=== PATIENT | female | born 1970 | race Caucasian/White ===

== ENCOUNTER → 2017-12-05 | Outpatient (CLI) | payer OTHER | LOC: FIMAGING 15:41 | PROVIDERS: ATTEND Internal Medicine | DX: Z12.31 Encounter for screening mammogram for malignant neoplasm of breast (principal); Z80.3 Family history of malignant neoplasm of breast ==

== ENCOUNTER → 2018-08-03 | Outpatient (CLI) | payer OTHER | LOC: FIMAGING 15:56 | PROVIDERS: ATTEND Orthopaedic Surgery | DX: M17.11 Unilateral primary osteoarthritis, right knee (principal) ==

== ENCOUNTER 2018-08-25 05:53 | Observation (INO) | payer OTHER ==
--- NOTE | 2018-08-24 14:10 | GHP ---
[f rep st] PREOP HISTORY AND PHYSICAL DATE OF ADMISSION: 08/25/2018 ADMISSION DIAGNOSIS: Osteoarthritis right knee. PLANNED PROCEDURE: Right unicompartmental knee replacement with Kofi assist. 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 Has failed conservative management including physical therapy, injections. Imaging; plain films, MRI, and CT scan all show severe medial compartment arthritis. Decision has been made to proceed with a partial medial knee replacement. PAST MEDICAL HISTORY: 1. Depression. 2. Asthma. PAST SURGICAL HISTORY: None. MEDICATIONS: ProAir inhaler. ALLERGIES: No known drug allergies. SOCIAL HISTORY: She works at [employer]. Does not smoke. Reports occasional alcohol use. REVIEW OF SYSTEMS: No shortness of breath or chest pain. Otherwise, review of systems negative. PHYSICAL EXAM: VITAL SIGNS: She is 5 feet 7 inches tall, weighs 145 pounds. Blood pressure is 115/58, respiratory rate is 62, heart rate 72. GENERAL: Alert and oriented x3. HEENT: Normocephalic, atraumatic. Extraocular muscles intact. NECK: Supple. There is no lymphadenopathy. CHEST: Clear to auscultation. CARDIOVASCULAR: Regular rate and rhythm. ABDOMEN: Soft, nontender, nondistended. EXTREMITIES: Right knee: There is no effusion. Tenderness on the medial joint line. Slight varus alignment, passively correctable to straight. She has full extension. Flexes to 130 degrees. 1+ Mathew with a firm endpoint. Negative posterior drawer. Calf is soft. 2+ dorsalis pedis, posterior tibial pulses. 5/5 ankle dorsiflexion and plantar flexion strength. IMAGING: X-ray, MRI, CT scan are all reviewed. They show severe medial compartment arthritis. PLAN: Partial medial sided knee replacement with a Kofi assist. Risks and benefits including postoperative pain, stiffness, possible need for revision surgery to a total knee arthroplasty, were all explained to Leidy. She understands these risks, wished to proceed with surgery at the hospital. /[id number]/MODL MTDD
[2018-08-25] MEDS ORDERED: BUPIVACAINE/EPI 0.5% 30 ML SDV ONE (06:16)
[2018-08-25] MEDS ORDERED: THROMBIN (BOVINE) 5,000 UNIT VIAL TP ONE (06:16)
[2018-08-25] MEDS ORDERED: CALCIUM CHLORIDE 1 GM/10 ML INJ ONE (06:17)
[2018-08-25] MEDS ORDERED: ceFAZolin 1 GM/5 ML SYR ONE (06:17)
[2018-08-25] MEDS ORDERED: ceFAZolin 2 GM/DEXTROSE 100 ML IV ONE (06:34)
[2018-08-25] MEDS ORDERED: LR 1,000 ML IV ONE (06:40)
[2018-08-25] MEDS ORDERED: MIDAZOLAM 2 MG/2 ML VIAL IVP ONE (06:42)
--- NOTE | 2018-08-25 06:42 | PDANEPAE ---
ANE History of Present Illness Right knee arthritis ANE Past Medical History - Cardiovascular History Hx Hypertension: No Hx Arrhythmias: No Hx Chest Pain: No Hx Coronary Artery / Peripheral Vascular Disease: No Hx CHF / Valvular Disease: No Hx Palpitations: No - Pulmonary History Hx COPD: No Hx Asthma/Reactive Airway Disease: Yes Hx Recent Upper Respiratory Infection: No Hx Oxygen in Use at Home: No Hx Sleep Apnea: No Sleep Apnea Screening Result - Last Documented: Negative Pulmonary History Comment: INHALER - Neurologic History Hx Cerebrovascular Accident: No Hx Seizures: No Hx Dementia: No - Endocrine History Hx Diabetes: No - Renal History Hx Renal Disorders: No - Liver History Hx Hepatic Disorders: No - Neurological & Psychiatric Hx Hx Neurological and Psychiatric Disorders: Yes Neurological / Psychiatric History Comment: DEPRESSION - Cancer History Hx Cancer: No Cancer History Comment: BASAL CELL - Congenital Disorder History Hx Congenital Disorders: No - GI History Hx Gastrointestinal Disorders: No - Other Health History Other Health History: ECZEMA - Chronic Pain History Chronic Pain: Yes (R KNEE) - Surgical History Prior Surgeries: NONE ANE Review of Systems Review of Systems: - Exercise capacity METS (RN): 5 METS ANE Patient History - Allergies Allergies/Adverse Reactions: No Known Allergies Allergy (Unverified 06/02/11 07:28) - Home Medications Home medications: home medication list seen and reviewed Home Medications: Lexapro 08/17/18 [Last Taken Unknown] - Anes Hx Anes Hx: no prior problems (Dental only with N/V. No GA or RA.) - Smoking Hx Smoking Status: Former smoker - Family Anes Hx Family Hx Anesthesia Complications: Sister had headache and brain swelling after epidural ANE Labs/Vital Signs - Vital Signs Height: 171.45 cm Weight: 72.575 kg ANE Physical Exam - Airway Neck exam: FROM Mallampati Score: Class 2 Mouth exam: normal dental/mouth exam - Pulmonary Pulmonary: no respiratory distress - Cardiovascular Cardiovascular: regular rate and rhythym - ASA Status ASA Status: II ANE Anesthesia Plan Anesthesia Plan: MAC, spinal Regional Anesthesia: adductor canal FNB (Plan AC in PACU)
--- NOTE | 2018-08-25 06:52 | PDHPUP ---
History & Physical Update H&P update statement: This history and physical update is based on an assessment of the patient which was completed after admission or registration (within 24 hours), but prior to the surgery/procedure. H&P update: H&P reviewed & patient examined, no change in patient's condition since H&P completed
[2018-08-25] MEDS ORDERED: PROPOFOL/EMULSION 500 MG/50 ML BOTTLE IV ONE ×2 (07:10→08:14)
[2018-08-25] MEDS ORDERED: PROPOFOL 200 MG/20 ML VIAL ONE (07:10)
[2018-08-25] MEDS ORDERED: LIDOCAINE 2% 5 ML SDV ONE (07:11)
[2018-08-25] MEDS ORDERED: ROPIVACAINE HCL 150 MG/30 ML INJ ONE (08:17)
[2018-08-25] MEDS ORDERED: PROMETHAZINE HCL 25 MG/ML INJ IVP PRN ×2 (08:26→08:53)
[2018-08-25] MEDS ORDERED: NALOXONE HCL 0.4 MG/ML INJ IVP PRN (08:26)
[2018-08-25] MEDS ORDERED: ONDANSETRON 4 MG/2 ML VIAL IVP PRN (08:26)
[2018-08-25] MEDS ORDERED: HYDROmorphONE/DILAUDID 1 MG/ML INJ IVP PRN (08:26)
[2018-08-25] MEDS ORDERED: DIPHENOXYLATE/ATROPINE LOMOTIL 1 TAB PO PRN (08:53)
[2018-08-25] MEDS ORDERED: POLYETHYLENE GLYCOL 3350 17 GM PKT PO PRN (08:53)
[2018-08-25] MEDS ORDERED: MAGNESIUM HYDROXIDE 30 ML UDCUP PO PRN (08:53)
[2018-08-25] MEDS ORDERED: diphenhydrAMINE 25 MG CAP PO PRN (08:53)
[2018-08-25] MEDS ORDERED: LACTULOSE 20 GM/30 ML UDCUP PO PRN (08:53)
[2018-08-25] MEDS ORDERED: BISACODYL 10 MG SUPP PR PRN (08:53)
[2018-08-25] MEDS ORDERED: TEMAZEPAM 15 MG CAP PO PRN (08:53)
[2018-08-25] MEDS ORDERED: PROMETHAZINE HCL 25 MG SUPPR PR PRN (08:53)
--- NOTE | 2018-08-25 08:53 | POSTOPPROG ---
Post Op Note Date of Operation: 08/25/18 Surgeon: Valentín Lyons Hunting Guide: Dimitri Cali Anesthesiologist: Filipe Anesthesia: Spinal Pre-op Diagnosis: OA medial compartment Post-op Diagnosis: same Procedure: RT medial compartment arthroplasty Findings: severe medial OA Inf/Abcess present in the surg proc area at time of surgery?: No EBL: Minimal Bowel Protocol: Yes Clean Closure Performed: Yes
[2018-08-25] MEDS ORDERED: LR 1,000 ML IV SCH (09:00)
--- NOTE | 2018-08-25 09:07 | POSTANESTH ---
Post Anesthetic Evaluation Cardiovascular Status: Similar to Pre-Op Cond Respiratory Status: Similar to Pre-op Cond. Level of Consciousness/Mental Status: Alert and Oriented Pain Control: Adequate, Prn Tx Ordered Nausea/Vomiting Control: Adequate, Prn Tx Ordered Complications Possibly Related to Anesthesia: None Noted (Adductor canal block done in PACU without complications)
[2018-08-25] MEDS ORDERED: fentaNYL 100 MCG/2 ML INJ ONE (09:11)
[2018-08-25] MEDS: fentaNYL 100 MCG/2 ML INJ IVP PRN ×3 (09:13→10:04)
--- NOTE | 2018-08-25 09:34 | GOP ---
[f rep st] OPERATIVE REPORT DATE OF OPERATION: 08/25/2018 SURGEON: Valentín Lyons MD D[employer] HOUSE SUPERVISOR: Kamron Cali, ASSEMBLY ROOM SUPERVISOR, [facility] ANESTHESIA: Adductor canal block and spinal. ANESTHESIOLOGIST: Lee Dent MD PREOPERATIVE DIAGNOSIS: Medial compartment osteoarthritis, right knee. POSTOPERATIVE DIAGNOSIS: Medial compartment osteoarthritis, right knee. PROCEDURE PERFORMED: Right partial knee arthroplasty with Kofi assist. FINDINGS: INDICATIONS: The patient is a 47-year-old female with worsening medial compartment arthritis and stefano led conservative management. The decision was made to proceed with a partial knee arthroplasty. DESCRIPTION OF PROCEDURE: After appropriate informed consent was obtained, the patient was taken to the operating room and placed supine on the operating room table. Time-out was performed. Patient w as identified. Correct site was identified and matched with the radiographs available in the room. Following a spinal anesthetic by Dr. Dent, she was positioned on the OR table with all bony p rominences well padded. Right lower extremity was prepped and draped in the usual sterile fashion. I exsanguinated the limb and inflated the tourniquet to 250 mmHg. Total tourniquet time was 62 minut es. I made a standard midline incision with a medial parapatellar arthrotomy. She had areas of full -thickness cartilage loss throughout the medial compartment. At the inferior pole of the patella, th ere were some grade 1 changes; otherwise, the remainder of the knee looked in good shape. ACL, PCL, medial and lateral collateral ligaments were all in good shape. I removed the remaining medial menis cus. We flexed the knee up. We placed our femoral array, tibial array, and secondary check points b oth on the femur and the tibia and confirmed these positions with the Kofi system. We then did our d christiano capture on the femur and the tibia, confirmed its positioning, did our ligament balancing, then u sing a bur, we resected her femur, followed by her tibia. We then trialed the size 3 femur and the t ibia with good fit. The 9 mm poly gave us good medial lateral stability, full extension. Trial impl ants were removed. Using pulsatile irrigation, we irrigated the canal, mixed the cement on the back table, and then cemented the femur, followed by the tibia and snapped the final poly in place. Held the knee in 45 degrees of extension, removed excess cement. I irrigated the wound a final time. Charley sed the extensor mechanism with 0 Vicryl. All check points were removed. I instilled 10 mL of PRP o n the cut bone surfaces as well as 15 mL of 0.5% Marcaine with epinephrine in the knee joint. Superf icial layers closed with 2-0 Vicryl. Skin was closed with a 3-0 Quill stitch in a subcuticular fashi on. Steri-Strips were applied to the skin. Sterile dressing was applied. Patient was awakened from anesthesia, taken to the recovery room in satisfactory condition. There were no immediate intraoper ative complications. Dimitri Cali's assistance was required throughout the entire case. IMPLANTS USED: A Okfi size 3 tibia cemented, size 3 femur cemented, and a 9 mm poly. COMPLICATIONS: None. DRAINS: None. TOTAL TOURNIQUET TIME: 62 minutes. /[id number]/MODL
[2018-08-25] MEDS: SENNOSIDES/DOCUSATE SODIUM TAB PO SCH ×2 (10:34→22:14)
--- NOTE | 2018-08-25 11:19 | SOAPPROG ---
SOAP Progress Note Assessment/Plan: Assessment: s/p right knee medial compartment arthroplasy with robotic assist - procedure earlier today, performed by Dr. Lyons Plan: Begin d/c planning - patient was hoping to go home today, but according to the patient Dr. Lyons would like for her to stay over night. She will have the support of her . Continue PT/OT efforts - WBAT with assistance initially, ROM as tolerated. Needs clearance from therapy prior to d/c Continue VTE ppx - aspirin 325 mg once daily, SCDs Continue oral pain medication - oxycodone, tylenol Subjective: Patient states her right knee is quite painful, she currently rates pain 5/10. She reports that she has experienced nausea in the past with narcotics. She would like to go home today but states Dr. Lyons told her that he may have her stay one night in the hospital to make sure her pain is controlled. She currently denies shortness of breath, chest pain, fever, chills. Objective: Vital Signs Temp Pulse Resp BP Pulse Ox 36.7 C 56 L 14 104/79 100 08/25/18 10:37 08/25/18 10:37 08/25/18 10:37 08/25/18 10:37 08/25/18 10:37 08/24/18 08/25/18 08/26/18 05:59 05:59 05:59 Intake Total 695 Output Total 20 Balance 675 Patient resting in bed, no acute distress. Her is in the room. RLE: Surgical wound dressings are clean, dry and intact. SCDs in place bilaterally. Lower leg compartments are soft and nontender. She can actively DF and PF her right foot and great toe. Grossly NVI distally. ICD10 Worksheet Patient Problems: Problems Problem Status Onset Unilateral primary osteoarthritis, right knee Acute
[2018-08-25] MEDS: KETOROLAC 15 MG/1 ML SDV IVP SCH ×3 (11:26→23:08)
[2018-08-25] MEDS: oxyCODONE IR 5 MG TAB PO PRN ×3 (11:27→19:55)
[2018-08-25] MEDS: ceFAZolin 2 GM/DEXTROSE 100 ML IV SCH ×2 (13:43→22:14)
[2018-08-25] MEDS: ACETAMINOPHEN 325 MG TAB PO SCH ×2 (15:30→22:13)
[2018-08-25] MEDS: CYCLOBENZAPRINE 10 MG TAB PO PRN (19:19)
[2018-08-25] MEDS: FAMOTIDINE 20 MG TAB PO SCH (22:14)
[2018-08-25] MEDS: ASPIRIN 325 MG TAB PO SCH (22:16)
[2018-08-26] MEDS: oxyCODONE IR 5 MG TAB PO PRN ×2 (03:43→08:17)
[2018-08-26] MEDS: ACETAMINOPHEN 325 MG TAB PO SCH ×2 (03:44→08:17)
[2018-08-26] MEDS: KETOROLAC 15 MG/1 ML SDV IVP SCH (05:49)
[2018-08-26 07:54] VITALS: BP 119/68
[2018-08-26] MEDS: FAMOTIDINE 20 MG TAB PO SCH (08:16)
[2018-08-26] MEDS: CYCLOBENZAPRINE 10 MG TAB PO PRN (08:16)
[2018-08-26] MEDS: ASPIRIN 325 MG TAB PO SCH (08:16)
[2018-08-26] MEDS: SENNOSIDES/DOCUSATE SODIUM TAB PO SCH (08:17)
[2018-08-26] MEDS ORDERED: ESCITALOPRAM OXALATE 10 MG TAB PO SCH (09:00)
--- NOTE | 2018-08-26 10:03 | SOAPPROG ---
JANE Progress Note Assessment/Plan: Assessment: s/p right knee medial compartment arthroplasy with robotic assist - POD 1 - performed by Dr. Lyons Plan: Continue d/c planning - go home today, PT recommended home health/PT since she cannot start outpatient PT for 2 weeks Continue PT/OT efforts - WBAT, ROM as tolerated. Needs clearance from therapy prior to d/c Continue VTE ppx - aspirin 325 mg once daily, SCDs Continue oral pain medication - oxycodone, tylenol. Patient has script for Thornton 5/325 mg, but she is concerned this will not be enough for her pain level Subjective: Patient states she is in quite a bit of pain. She worked with PT and OT and PT recommended home health/PT since her AROM is limited and she cannot start outpatient PT for 2 weeks. PT is concerned she will not do enough ROM on her own. Patient denies SOB, CP, fever, chills, nausea, numbness, tingling. Objective: Vital Signs Temp Pulse Resp BP Pulse Ox 36.6 C 59 L 16 119/68 97 08/26/18 07:53 08/26/18 07:53 08/26/18 07:53 08/26/18 07:53 08/26/18 07:53 Laboratory Results 08/26/18 04:33 08/25/18 08/26/18 08/27/18 05:59 05:59 05:59 Intake Total 3895 Output Total 3020 400 Balance 875 -400 Patient resting in bed, no acute distress but she does appear to be in pain. RLE : Wound dressings is clean, dry and intact. Lower leg compartments are soft and nontender. Negative Homans bilaterally. She can actively DF and PF her right foot and great toe against resistance. Grossly NVI distally. ICD10 Worksheet Patient Problems: Problems Problem Status Onset Unilateral primary osteoarthritis, right knee Acute
[2018-08-26] MEDS ORDERED: OXYCODONE/APAP 5/325 TAB PO PRN (10:11)
--- NOTE | 2018-08-26 10:28 | PDDCSUM ---
Discharge Summary Discharge Summary: ADMISSION DIAGNOSIS: Right knee severe medial compartment degenerative arthritis DISCHARGE DIAGNOSIS: Right knee severe medial compartment degenerative arthritis OPERATION PERFORMED: August 25, 2018, Right knee medial compartment arthroplasty, Kofi robot assisted POSTOPERATIVE COMPLICATIONS: None CONDITION ON DISCHARGE: Improved HPI: The patient is a 47 year old female who has end-stage arthritis of the medial compartment of her right knee. Clinical and radiographic features are consistent with this. Patient has failed attempts at conservative management, therefore, recommended operative right knee medial compartment arthroplasty. DESCRIPTION OF HOSPITAL COURSE: The patient was admitted to the hospital on the morning of surgery and underwent a right knee medial compartment arthroplasty, Kofi robot assisted. Postoperatively, patient was treated with multimodal DVT prophylaxis, including aspirin 325 mg once daily, SCDs and UGO hose. Patient was seen by PT and made good progress with ambulation and stairs. On the first post-operative day the patients H&H was 11.9/34.7. Patient was able to void spontaneously. Patient progressed better than expected and was discharged on post-op day 1. At the time of discharge, patient was afebrile, wound was clean and dry. Patient is walking with a walker. DISPOSITION: The patient is discharged home with home health until she starts outpatient PT in 2 weeks. Patient may progress to full weightbearing on the right lower extremity as tolerated. UGO stockings for 10 days during the day time. Aspirin 325 mg once daily for 2 weeks. Patient has a prescription for Coffeen 5/325 mg, but she was concerned that it would not cover her pain. Therefore a script for Percocet 5/325 mg was given to her and she was instructed to take the Vicodin with her to the pharmacy in case the pharmacist wanted that medication back prior to giving her the Percocet. Flexeril was also electronically sent to her pharmacy. The patient will be seen by Dr. Lyons's office in approximately 2 weeks. If there are any problems, patient is to call Dr. Padron office.
--- NOTE | 2018-08-26 11:04 | PDIAF ---
- Diagnosis Diagnosis: Right knee DJD s/p Right partial knee replacement (medial compartment ) Code Status: Full Code - Medication Management Discharge Medications: electronically signed and located in the Home Medication List. - Orders Services needed: Home Care, Physical Therapy Home Care Face to Face: I certify that this patient was under my care and that I had the required [id number] encounter meeting the encounter requirements on the discharge day. My findings support the fact that the patient is homebound as defined in Home Care Face to Face Continued: CMS Chapter 7 Medicare Benefits Manual 30.1.1 , The condition of the patient is such that there exists a normal inability to leave home and consequently, leaving home would require a considerable and taxing effort. Diet Recommendation: no restrictions on diet Diet Texture: Regular Texture Diet Additional Instructions: Weightbear as tolerated on right lower extremity. Initiate PT and home exercises for ROM, strengthening, and gait training. Keep dressing clean and dry for 7 days and then you may removed dressing. When you shower please keep the dressing covered to prevent the incision from getting wet. Take aspirin 325 mg once daily x 2 weeks. If you have UGO hose, wear for 10 days. Continue to take Vicodin for pain, but if it is not helping you have script for Percocet. Take the Vicodin with you to the pharmacy in case the pharmacist wants that medication in exchange for the Percocet. Follow up in 14 days for repeat evaluation and wound check - Follow Up Care Current Providers and Referrals: Valentín Lyons MD [Medical Doctor] - follow up in 2 weeks NONE *PRIMARY CARE P,. [Unknown] -
--- NOTE | 2018-08-26 11:42 | ASMTLACE ---
BHUPINDERE Length of stay for Answers: 2 days current admission Acuity / Level of Answers: No Care: Did the patient have an inpatient admission? Comorbidities - select Answers: Opioid dependence all that apply / Chronic pain # of Emergency department Answers: 0 visits in the last 6 months Social determinants Answers: Mental health diagnosis (anxiety, depression, pers onality disorders, etc.) Score: 9 Date Signed: 08/26/2018 11:41 AM Electronically Signed By:LUZ Vela
--- NOTE | 2018-08-26 11:44 | ASMTCMCOM ---
CM Note CM Note Notes: Pt medically stable for d/c with [facility] PT. Orders to be obtained via [employer]. Pt d/c address/phone verified. Pt had planned OA of knee. PT rec home care. Pt resides with . Date Signed: 08/26/2018 11:43 AM Electronically Signed By:LUZ Vela
--- NOTE | 2018-08-26 13:59 | ASDISCHSUM ---
Discharge Information Plan Status:Home with Home Health Medically Cleared to Leave: Discharge Date:08/26/2018 11:30 AM CM D/C Disposition: ADT D/C Disposition:Home, Routine, Self-Care Projected Discharge Date:08/26/2018 11:00 AM Transportation at D/C: Discharge Delay Reason: Follow-Up Date:08/26/2018 11:00 AM Discharge Slot: Final Diagnosis: Placement Information Referral Type:*Home Health Care Services Referral ID:[id number] Provider Name:[facility] Address 1:[address] [facility] [address] Phone Number: Address 2: Fax Number: [facility]:[place] Selection Factors: State:[place] Patient Contact Information Contact Name:ALESSANDRA Relationship: Address:[address] City:[place] Alternate Phone: State/Zip Code:[place] [address] Email: Financial Information Financial Class:AdECN Primary Plan Desc:[facility] Primary Plan Number:[id number] Secondary Plan Desc: Secondary Plan Number: Assessment Information LACE LACE Length of stay for Answers: 2 days current admission Acuity / Level of Answers: No Care: Did the patient have an inpatient admission? Comorbidities - select Answers: Opioid dependence all that apply / Chronic pain # of Emergency department Answers: 0 visits in the last 6 months Social determinants Answers: Mental health diagnosis (anxiety, depression, pers onality disorders, etc.) Score: 9 Date Signed: 08/26/2018 11:41 AM Electronically Signed By:LUZ Vela [facility] CM Progress Note CM Note CM Note Notes: Pt medically stable for d/c with [facility] PT. Orders to be obtained via [employer]. Pt d/c address/phone verified. Pt had planned OA of knee. PT rec home care. Pt resides with . Date Signed: 08/26/2018 11:43 AM Electronically Signed By:LUZ Vela Intervention Information
== END 2018-08-26 11:30 | disposition home or self-care (01) ==
LOC: F3N 05:53 → EDSTATUS 08-28 07:15
PROVIDERS: ADMIT Orthopaedic Surgery; ATTEND Orthopaedic Surgery
DX: M17.11 Unilateral primary osteoarthritis, right knee (principal); J45.909 Unspecified asthma, uncomplicated
CPT/HCPCS: 27446; 73560; 97116; 97161; 97165; 97530; G0378; C1713; J0690; J1885; J2250; J2704; J2795; J3010